=== PATIENT | male | born 1985 | race Caucasian/White ===

== ENCOUNTER 2024-10-13 11:10 | Emergency (ER) | payer OTHER ==
[~2024-10-13] VITALS: Ht 170.2 cm; Wt 79.5 kg
[~2024-10-13 11:10] MED LIST: ACET-2247 PO; LOPE-232 PO
[2024-10-13 11:41] VITALS: TEMP 98.3
[2024-10-13] MEDS: IBUPROFEN 600 MG TABLET PO ONE (13:44)
[2024-10-13] MEDS: AMOX TR/POT CLAV 875 MG/125 MG TABLET PO ONE (13:44)
[2024-10-13 13:46] VITALS: BP 140/88; PULSE 74; RESP 15; O2SAT 98
== END 2024-10-13 13:53 ==
LOC: EMS 11:14
DX: T18.0XXA Foreign body in mouth, initial encounter (principal); L01.00 Impetigo, unspecified; K08.89 Other specified disorders of teeth and supporting structures; W44.8XXA Other foreign body entering into or through a natural orifice, initial encounter; Y93.89 Activity, other specified; Y92.89 Other specified places as the place of occurrence of the external cause; Y99.8 Other external cause status
CPT/HCPCS: 99283

== ENCOUNTER 2025-06-20 15:11 | Inpatient (IN) | payer OTHER ==
[~2025-06-20] VITALS: Ht 170.2 cm; Wt 68.0 kg
[2025-06-20 16:29] LABS: PLATELET COUNT (AUTO) 336 K/uL (150-450); RED BLOOD CELL COUNT(AUTO) 4.69 MIL/uL (4.50-5.90); RED CELL DISTRIBUTION WIDTH 13.6 % (11.5-14.5); WHITE BLOOD COUNT (AUTO) 6.1 K/uL (4.5-11.0)
[2025-06-20] MEDS: SODIUM CHLORIDE 0.9% 1,000 ML IV ONE (16:34)
[2025-06-20] MEDS: ONDANSETRON HCL 4 MG/2 ML VIAL IVP ONE (16:34)
[2025-06-20 16:37] LABS: CALCIUM, TOTAL 8.7 mg/dL (8.8-10.5); CREATININE 0.60 mg/dL (0.60-1.30); GLOMERULAR FILTR. RATE CALC > 60 mL/min (>60); GLUCOSE,RANDOM 101 mg/dL (70-110); SODIUM SERUM 140 mmol/L (136-145); UREA NITROGEN, BLOOD 12 mg/dL (7-18)
[2025-06-20 16:39] LABS: ALCOHOL, BLOOD (SERUM) < 3 mg/dL (0-10)
[2025-06-20 16:43] LABS: ASPARTATE AMINOTRANSFERASE 26 U/L (15-37); TOTAL PROTEIN, SERUM 6.8 g/dL (6.4-8.2)
[2025-06-20] MEDS ORDERED: LOPERAMIDE HCL 2 MG CAPSULE PO PRN (19:15)
[2025-06-20] MEDS ORDERED: DICYCLOMINE HCL 10 MG CAPSULE PO PRN (19:15)
[2025-06-20] MEDS ORDERED: METOCLOPRAMIDE HCL 5 MG/ML 2 ML VIAL IVP PRN (19:15)
[2025-06-20] MEDS ORDERED: LORazepam 2 MG/ML VIAL IVP PRN (19:15)
[2025-06-20] MEDS: POTASSIUM CHLORIDE 20 MEQ ER TABLET PO ONE (19:17)
[2025-06-20 21:56] VITALS: BP 125/74; PULSE 60; RESP 18; TEMP 98.2; O2SAT 96
[2025-06-20] MEDS: TEMAZEPAM 15 MG CAPSULE PO SCH (23:02)
[2025-06-21 04:36] VITALS: BP 121/80; PULSE 74; RESP 18; TEMP 97.9; O2SAT 100
[2025-06-21 07:06] LABS: CALCIUM, TOTAL 8.6 mg/dL (8.8-10.5); CREATININE 0.69 mg/dL (0.60-1.30); GLOMERULAR FILTR. RATE CALC > 60 mL/min (>60); GLUCOSE,RANDOM 110 mg/dL (70-110); SODIUM SERUM 139 mmol/L (136-145); UREA NITROGEN, BLOOD 10 mg/dL (7-18)
[2025-06-21 07:55] VITALS: BP 128/90; PULSE 80; RESP 18; TEMP 98.1; O2SAT 99
[2025-06-21 17:58] LABS: PH,URINE DRUG SCREEN 6.5 (5.0-8.0)
[2025-06-21 18:04] LABS: ALCOHOL, URINE DRUG SCREEN NEGATIVE (NEGATIVE); AMPHET/METH SCREEN,URINE POSITIVE (NEGATIVE); BARBITURATE SCREEN, URINE NEGATIVE (NEGATIVE); CANNABINOID SCREEN,URINE NEGATIVE (NEGATIVE); COCAINE SCREEN,URINE NEGATIVE (NEGATIVE); METHADONE SCREEN, URINE NEGATIVE (NEGATIVE)
[2025-06-21 19:39] VITALS: BP 144/90; PULSE 79; RESP 19; TEMP 97.9; O2SAT 99
[2025-06-22 05:04] VITALS: BP 135/82; PULSE 66; RESP 18; TEMP 98.2; O2SAT 100
[2025-06-22 08:44] VITALS: BP 146/71; PULSE 69; RESP 18; TEMP 97.7; O2SAT 100
[2025-06-22] MEDS: BUPRENORPHINE HCL/NALOXONE HCL 2-0.5 MG SUBLINGUAL TABLET SL ONE (15:23)
[2025-06-22 20:38] VITALS: BP 121/74; PULSE 75; RESP 18; TEMP 98.1; O2SAT 99
[2025-06-22] MEDS: BUPRENORPHINE HCL/NALOXONE HCL 8-2 MG SUBLINGUAL TABLET SL SCH (20:49)
[2025-06-23 04:34] VITALS: BP 119/74; PULSE 56; RESP 18; TEMP 97.9; O2SAT 100
[2025-06-23] MEDS ORDERED: BUPR1TAB46 SL (10:28)
[2025-06-23 15:26] VITALS: BP 119/78; PULSE 60; RESP 18; TEMP 97.9; O2SAT 100
[2025-06-23] MEDS ORDERED: NICO-803 TD (15:30)
[2025-06-23] MEDS: NICOTINE 21 MG/24 HOUR PATCH TD SCH (16:50)
== END 2025-06-23 20:02 | DRG 897 ==
LOC: EMS 15:11 → EDH 19:07 → 6S 21:33
PROVIDERS: ADMIT Internal Medicine; ATTEND Internal Medicine
DX: F11.13 Opioid abuse with withdrawal (principal); E87.6 Hypokalemia
CPT/HCPCS: 80048; 80053; 80307; 84132; 85025; 93005; 96361; 96374; 99285; G0480; J2405; J7030; 36415-L1; 36415-TC